=== PATIENT | female | born 1990 | race Caucasian/White ===

== ENCOUNTER 2017-05-27 13:36 | Emergency (ER) | payer OTHER ==
[~2017-05-27] VITALS: Ht 165.1 cm; Wt 70.3 kg
[2017-05-27] MEDS ORDERED: TOPROL XL25 MG PO (13:57)
[2017-05-27] MEDS ORDERED: CYCLOBENZAPRINE5 MG PO (13:57)
[2017-05-27] MEDS ORDERED: OXYCODONE HYDRO10 M1 PO (13:58)
[2017-05-27] MEDS ORDERED: MIRTAZAPINE15 M2 PO (13:58)
[2017-05-27] MEDS ORDERED: GLUCOTROL5 MG PO (13:59)
[2017-05-27] MEDS ORDERED: TRAZODONE100 MG PO (13:59)
[2017-05-27] MEDS ORDERED: NATURAL SENNA8.6 MG PO (14:00)
[2017-05-27] MEDS ORDERED: COLACE100 MG PO (14:00)
[2017-05-27] MEDS ORDERED: MORPHINE SULFAT15 M7 PO (14:01)
[2017-05-27] MEDS ORDERED: ATORVASTATIN CA40 M1 PO (14:02)
[2017-05-27] MEDS ORDERED: ELIQUIS5 MG PO (14:02)
[2017-05-27] MEDS ORDERED: NEU300 PO (14:02)
[2017-05-27] MEDS ORDERED: METFORMIN HCL1000 MG PO (14:03)
[2017-05-27 15:28] LABS: BASOPHIL % 0.3 % (0-2); RED CELL DISTRIBUTION WIDTH 13.4 % (11.5-14.5)
[2017-05-27 15:29] LABS: PLATELET COUNT 403 x10^3mcL (130-400)
[2017-05-27 15:31] LABS: CALCIUM 8.8 mg/dL (8.5-10.1); CARBON DIOXIDE 30.6 mmol/L (21-32); CHLORIDE SERUM 103 mmol/L (98-107); CREATININE SERUM 0.6 mg/dL (0.6-1.0); GFR1 > 60 mL/min; GLUCOSE SERUM 133 mg/dL (74-106); POTASSIUM SERUM 3.5 mmol/L (3.5-5.1); SODIUM SERUM 140 mmol/L (136-145)
[2017-05-27 15:37] LABS: ALBUMIN 3.2 g/dL (3.4-5.0); ALKALINE PHOSPHATASE 78 U/L (46-116); ALT/SGPT 19 U/L (14-59); AST/SGOT 10 U/L (15-37); BILIRUBIN TOTAL 0.3 mg/dL (0.20-1.00); CHOLESTEROL 136 mg/dL (<200); CHOLESTEROL/HDL RATIO 3.6; HDL CHOLESTEROL 38 mg/dL (40-60); LIPASE 107 IU/L (73-393); TOTAL PROTEIN, SERUM 7.5 g/dL (6.4-8.2); TRIGLYCERIDES 108 mg/dL (<150)
[2017-05-27 15:57] LABS: T3 TOTAL 1.07 ng/mL
[2017-05-27 16:02] LABS: FREE T4 1.13 ng/dL (0.76-1.46); FREE THYROXINE INDEX 3.4 ug/dL (1.4-4.5); T4(THYROXINE) 9.7 ug/dL (4.7-13.3)
[2017-05-27 18:43] VITALS: BP 114/85
== END 2017-05-27 18:43 | disposition home or self-care (01) ==
LOC: ED 13:36
PROVIDERS: Specialist
DX: F41.9 Anxiety disorder, unspecified (principal); E11.9 Type 2 diabetes mellitus without complications; Z79.84 Long term (current) use of oral hypoglycemic drugs
CPT/HCPCS: 36415; 83880; 84439; Q0092

== ENCOUNTER 2019-07-15 13:18 | Inpatient (IN) | payer OTHER ==
[~2019-07-15] VITALS: Ht 167.6 cm; Wt 75.9 kg
[~2019-07-15 13:18] MED LIST: ATORVASTATIN CA40 M1 PO; COLACE100 MG PO; CYCLOBENZAPRINE5 MG PO; ELIQUIS5 MG PO; GLUCOTROL5 MG PO; METFORMIN HCL1000 MG PO; MIRTAZAPINE15 M2 PO; MORPHINE SULFAT15 M7 PO; NATURAL SENNA8.6 MG PO; NEU300 PO; OXYCODONE HYDRO10 M1 PO; TOPROL XL25 MG PO; TRAZODONE100 MG PO
[2019-07-15 13:23] VITALS: Ht 167.6 cm; Wt 75.9 kg
--- NOTE | 2019-07-15 14:49 | NUR ---
PT SITTING UP ON EDGE OF BED, AAOX4 WITH C/O 10/10 PAIN TO LT EAR WITH SWELLING/REDNESS X 2 MONTHS S/P EAR PIERCING. PT ALSO WITH C/O MID LOWER BACK PAIN X 3 DAYS WITH NAUSEA AND 'GREEN' STOOL 'FOR A FEW DAYS'. PT DENIES ANY V/D/C, RESP ILLNESS, FEVER OR URINARY PROBLEMS AT THIS TIME. PT WAS SENT HERE FROM HER PCP S/P OFFICE VISIT. PCP RX STATING PT NEEDS TO BE EVALUATED FOR DKA DUE TO ELEVATED BLOOD SUGAR AND PROTEIN IN URINE. NO SIGNS OF DISTRESS AT THIS TIME. PT NOTED WITH SWELLING AND DISCOLORATION TO TOP OF LT EAR, NO DRAINAGE AT THIS TIME.
--- NOTE | 2019-07-15 16:16 | NUR ---
DR. DELANEY AT BEDSIDE FOR MSE.
[2019-07-15 16:47] LABS: microscopic required? NO
[2019-07-15 17:06] LABS: UA SPECIFIC GRAVITY <=1.005 (1.005-1.035); urine erythrocyte NEGATIVE (NEGATIVE)
--- NOTE | 2019-07-15 17:06 | NUR ---
PT. SITTING UP ON GURNEY ON CELL PHONE. BREATHING E/U. NO APPARENT DISTRESS NTOED. CALL LIGHT IN REACH. WILL CONTINUE TO MONITOR.
[2019-07-15 17:16] LABS: BASOPHIL % 0.3 % (0-2); PLATELET COUNT 353 x10^3mcL (130-400); RED CELL DISTRIBUTION WIDTH 12.3 % (11.5-14.5)
[2019-07-15 17:26] LABS: ALBUMIN 3.4 g/dL (3.4-5.0); ALKALINE PHOSPHATASE 128 U/L (46-116); ALT/SGPT 21 U/L (14-59); AST/SGOT 5 U/L (15-37); BILIRUBIN TOTAL 0.27 mg/dL (0.20-1.00); CALCIUM 8.8 mg/dL (8.5-10.1); CARBON DIOXIDE 29.8 mmol/L (21-32); CHLORIDE SERUM 97 mmol/L (98-107); CREATININE SERUM 0.9 mg/dL (0.6-1.0); GFR1 > 60 mL/min; POTASSIUM SERUM 3.8 mmol/L (3.5-5.1); SODIUM SERUM 135 mmol/L (136-145); TOTAL PROTEIN, SERUM 8.2 g/dL (6.4-8.2)
[2019-07-15 17:28] LABS: GLUCOSE SERUM 521 mg/dL (74-106)
--- NOTE | 2019-07-15 19:19 | NUR ---
RECEIVED REPORT FORM FAUSTO RICH RN, I WILL ASSUME FURTHER CARE OF THIS PATIENT.
--- NOTE | 2019-07-15 19:19 | NUR ---
REPORT GIVEN TO JUAN CADENA FOR FURTHER CARE OF PATIENT. ALL QUESTIONS AND CONCERNS ADDRESSED.
[2019-07-15] MEDS ORDERED: OXYCODONE HYDROC5 M2 PO (19:28)
[2019-07-15] MEDS ORDERED: MORPHINE SULFAT30 M2 PO (19:28)
--- NOTE | 2019-07-15 19:35 | NUR ---
PT REPRTS HEADACHE PAIN AND LEFT EAR PAIN, PT ASKED FOR PAIN MEDICATIONS, NOTIFIED ELAINA DUMONT. TO PLACE IN ORDERS FRO MEDS.
--- NOTE | 2019-07-15 19:38 | NUR ---
MEDICATED PT PER MD ORDERS, SEE EMAR, PT VERBALIZED UNDERSTANDING OF MEDICATION TEACHING. PT IN POSITION OF COMFORT LAYING IN BED, PT ON MONITOR. BED IN LOWEST POSITION, SIDERAIL X2 UP FOR SAFETY, CALL SOLIS WITHIN REACH. CARLOS CONT TO MONITOR.
--- NOTE | 2019-07-15 20:10 | NUR ---
XRAY AT THE BEDSIDE
[2019-07-15 20:35] LABS: HDL CHOLESTEROL 44 mg/dL (40-60)
[2019-07-15 20:37] LABS: AMPHETAMINE QUAL UR NONE DETECTED (See below)
[2019-07-15 20:38] LABS: CHOLESTEROL 307 mg/dL (<200); TRIGLYCERIDES 609 mg/dL (<150)
[2019-07-15 20:40] LABS: T3 TOTAL 0.73 ng/mL
[2019-07-15 20:47] LABS: FREE T4 0.79 ng/dL (0.76-1.46); FREE THYROXINE INDEX 2.1 ug/dL (1.4-4.5); T4(THYROXINE) 6.7 ug/dL (4.7-13.3)
--- NOTE | 2019-07-15 21:00 | NUR ---
PT REPORTS IMPROVED HEAD PAIN, STATES PAIN IS 5/10 AT THIS TIME. PT IN POSITION OF COMFORT LAYING IN BED TALKING ON HER CELL PHONE. PT IN NO DISTRESS, RESP E/U. BED IN LOWEST POSITION, SIDERAIL X2 UP FOR SAFETY, CALL SOLIS WITHIN REACH.
--- NOTE | 2019-07-15 21:40 | NUR ---
PT GIVEN PEANUT BUTTER AND JELLY SANDWICH, OK PER . AND PARTH. PT ATE 100%.
--- NOTE | 2019-07-15 22:00 | NUR ---
BG= 306, 12 UNITS OF HUMULIN-R GIVEN SQ PER MD ORDERS PER SS, CONFIRMED BY SECOND RBN ESTEVAN.
--- NOTE | 2019-07-15 22:12 | NUR ---
GAVE REPORT TO SATNAM CADENA, ON [facility] WHO WILL ASSUME FURTHER CARE OF THIS PATIENT.
[2019-07-15 22:49] VITALS: BP 128/86
--- NOTE | 2019-07-15 23:04 | NUR ---
ADMITTED A 28 YEARS OLD FEMALE AWAKE,ALERT AND ORIENTED CAME IN VIA GURNEY ACCOMPANIED BY ER STAFF WITH C/O REDNESS AND SWELLING LEFT EAR. MEDICATED IN ER FOR PAIN, TORADOL 30 MG IV GIVEN. KEPT IN COMFORT,ORIENTED TO ROOM AND DEVICES. WITH ADMISSION ORDERS AND TO CARRY OUT. IV TO LAC INTACT AND INFUSING WELL. WILL CONTINUE TO MONITOR.
--- NOTE | 2019-07-15 23:54 | NUR ---
PICTURE OF LEFT ESR ABSCESS TAKEN AND ABCESS SWAB TAKEN FOR CULTURE. WILL CONTINUE TO MONITOR.
[2019-07-16 05:09] VITALS: BP 120/87
--- NOTE | 2019-07-16 05:21 | NUR ---
SLEPT AT LONG INTERVALS C/O LEG PAIN X1 THE ENTIRE SHIFT AND MEDCIATED PRESCRIBED. ALL NEEDS ATTENDED.
--- NOTE | 2019-07-16 07:05 | NUR ---
RECEIVED PATIENT AWAKE/ALERT IN BED NO DISTRESS NOTED. REPORT NO PAIN AT THIS TIME. M/S. IV TO LAC INTACT AND INFUSING WELL, NO SWELLING NOTED. POC DISCUSS. CALL LIGHT WITHIN REACH.
[2019-07-16 07:25] LABS: BASOPHIL % 0.3 % (0-2); PLATELET COUNT 339 x10^3mcL (130-400); RED CELL DISTRIBUTION WIDTH 12.1 % (11.5-14.5)
[2019-07-16 07:55] LABS: CARBON DIOXIDE 28.1 mmol/L (21-32); CHLORIDE SERUM 106 mmol/L (98-107); CREATININE SERUM 0.5 mg/dL (0.6-1.0); GFR1 > 60 mL/min; GLUCOSE SERUM 201 mg/dL (74-106); MAGNESIUM 1.8 mg/dL (1.8-2.4); PHOSPHOROUS 3.2 mg/dL (2.5-4.9); POTASSIUM SERUM 3.1 mmol/L (3.5-5.1); SODIUM SERUM 142 mmol/L (136-145)
[2019-07-16 08:28] VITALS: BP 131/90
--- NOTE | 2019-07-16 10:33 | NUR ---
PATIENT RESTING IN BED NO COMPLAIN, NO PAIN REPORTED. ALL PO MEDS ADMINISITERED, PATIENT ON OXYCODONE PO SCHEDULE. NEEDS MET. CALL LIGHT WITHIN REACH.
[2019-07-16 13:08] VITALS: BP 142/87
--- NOTE | 2019-07-16 13:14 | NUR ---
PATIENT RESTING IN BED PAIN 7/10 LEG OXYCODONE AND NEURONTIN SCHEDULE GIVEN. NEEDS MET. CALL LIGHT WITHIN REACH.
--- NOTE | 2019-07-16 14:44 | NUR ---
PATIENT SIT UP IN BED INFORM PATIENT WILL GIVE POTASSIUM 40MEQ PO X1 FOR K 3.1 PATIENT TOLERATED WELL. VISITOR AT BEDSIDE, CALL LIGHT WITHIN REACH.
--- NOTE | 2019-07-16 16:53 | NUR ---
PATIENT SAT UP IN BED W/ HER AUNT AT BEDSIDE, GAVE 9UNITS REGULAR INSULIN SQ FOR BS 299, NEURONTIN PO ADMINISTERED, PATIENT TOLERATED. CONT TO MONITOR.
[2019-07-16 17:31] VITALS: BP 125/88
--- NOTE | 2019-07-16 18:21 | NUR ---
PATIENT RESTING IN BED ON THE PHONE AT THIS TIME, NO NEEDS OF ANYTHING. CONT TO MONITOR.
--- NOTE | 2019-07-16 19:35 | NUR ---
RECEIVED PT FROM DAY SHIFT RN. PT AAOX4 DENIES REDDING/DIZZINESS. BREATHING EVEN AND UNLABORED, ON RA WITH NO SOB NOTED. IV PATENT. PT AMB WITH BRP. PT DENEIS ANY CHEST PAIN/PRESSURE. NO ACUTE DISTRESS NOTED. CALL BUTTON WITHIN REACH. SAFETY PRECAUTIONS IN PLACE. WILL CONTINUE TO MONITOR.
[2019-07-16 20:37] VITALS: BP 117/85
--- NOTE | 2019-07-17 00:55 | NUR ---
ROUNDS MADE. PT RESTING. BREATHING EVEN AND UNLABORED. NO SIGNS OF DISTRESS NOTED. CALL BUTTON WITHIN REACH. SAFETY PRECAUTIONS IN PLACE. WILL CONTINUE TO MONITOR.
[2019-07-17 05:24] VITALS: BP 108/75
[2019-07-17 05:25] VITALS: BP 148/80
--- NOTE | 2019-07-17 06:15 | NUR ---
PT SLEPT MOST OF THE NIGHT WITH NO SIGNS OF DISTRESS. PT DENIES ANY PAIN. IV PATENT. PT AMBULATORY WITH BRP. PT MEDICATED PER EMAR. NO SIGNS OF ACUTE DISTRESS. CALL BUTTON WITHIN REACH. SAFETY PRECAUTIONS IN PLACE. WILL CONTINUE TO MONITOR AND ENDORSE CARE TO DAY SHIFT RN.
[2019-07-17 06:50] LABS: BASOPHIL % 0.4 % (0-2); PLATELET COUNT 288 x10^3mcL (130-400); RED CELL DISTRIBUTION WIDTH 11.8 % (11.5-14.5)
--- NOTE | 2019-07-17 07:00 | NUR ---
RECEIVED PATIENT AWAKE/ALERT IN BED, DENIES PAIN AT THIS TIME. NO DISTRESS NOTED. IV TO LAC INTACT AND SL, WRAPPED W/ KERLIX CDI. CALL LIGHT WITHIN REACH.
[2019-07-17 07:13] LABS: CALCIUM 8.5 mg/dL (8.5-10.1); CARBON DIOXIDE 26.1 mmol/L (21-32); CHLORIDE SERUM 108 mmol/L (98-107); CREATININE SERUM 0.6 mg/dL (0.6-1.0); GFR1 > 60 mL/min; GLUCOSE SERUM 217 mg/dL (74-106); POTASSIUM SERUM 3.7 mmol/L (3.5-5.1); SODIUM SERUM 142 mmol/L (136-145)
--- NOTE | 2019-07-17 07:38 | NUR ---
PT RESTING, BREATHING EVEN AND UNLABORED ON RA WITH NO SOB NOTED. NO SIGNS OF DISTRESS NOTED. ENDORSED CARE TO DAY SHIFT RN, ALL QUESTIONS ADDRESSED.
[2019-07-17 08:29] VITALS: BP 111/79
[2019-07-17] MEDS ORDERED: LEVOFLOXACIN500 M1 PO (08:30)
--- NOTE | 2019-07-17 09:21 | NUR ---
PATIENT RESTING IN BED NO COMPLAIN. PER PATIENT RESIDENT STANTON SEEN PATIENT AND PLANNING TO DISCHARGE HOEM. ALL PO MEDS AND OXYCODONE PO ADMINISTERED, PATIENT TOLERATED. NEEDS MET. CONT TO MONITOR.
--- NOTE | 2019-07-17 11:24 | NUR ---
PATIENT AWAKE/ALERT IN BED, MOTHER AT BEDSIDE, DM TEACHING PERFORM, HAVING PATIENT DEMONSTRATE BLOOD SUGAR CHECK STEPS BY STEPS PATIENT VERBALIZE "I KNOW HOW TO DO THAT", HAVING PATIENT DRAW ACCURATE DOSE ON THE SYRINGE AND VERIFIED BY ANOTHER RN AND MYSELF, PATIENT DEMONSTRATE GIVEING INSULIN TO ABDOMEN, PATIENT HASITATE A LITTLE BUT WAS ABLE TO GIVE HERSELF SHOT. PATIENT WILL LIKELY NONCOMPLIANT AT HOME "STATE THAT I'M NOT GOING DO THAT", EVEN WITH MOTHER INVOLVED.
--- NOTE | 2019-07-17 11:55 | NUR ---
SPOKE TO CARRIE RICHARD TO ARRANGE NURSE TO REINFORCED INSULIN SELF INJECT PER PATIENT AND MOTHER REQUEST. PATIENT IS AGREE TO INJECT INSULIN AT HOME.
[2019-07-17 12:39] VITALS: BP 111/79
--- NOTE | 2019-07-17 13:04 | NUR ---
PATIENT SAT UP EATING NO COMPLAIN, MOTHER AT BEDSIDE. DISCHARGE INSTRUCTION AND MEDICATION EXPLAINED TO PATIENT AND MOTHER. INSTRUCT TO TAKE MEDS DIRECTED. F/U APPT SCHEDULE. PATIENT VERBALIZE UNDERSTAND. IV REMOVED TO LAC W/ CATH INTACT, NO SWELLING NOTED. GAUZES APPLIED TO SITE. FISH SMOKER WILL ASSIST PATIENT OUT. ALL BELONGINGS WITH PATIENT.
== END 2019-07-17 13:10 | disposition home or self-care (01) | DRG 115 ==
LOC: ED 13:18 → MU 19:24
PROVIDERS: Emergency Medicine; ADMIT Family Medicine
DX: H60.12 Cellulitis of left external ear (principal); E87.8 Other disorders of electrolyte and fluid balance, not elsewhere classified; E11.65 Type 2 diabetes mellitus with hyperglycemia; D75.1 Secondary polycythemia; E87.1 Hypo-osmolality and hyponatremia; G89.21 Chronic pain due to trauma; M25.552 Pain in left hip; M54.9 Dorsalgia, unspecified; E78.5 Hyperlipidemia, unspecified; F32.9 Major depressive disorder, single episode, unspecified; Z68.28 Body mass index [BMI] 28.0-28.9, adult; Z79.84 Long term (current) use of oral hypoglycemic drugs; Z91.14 Patient's other noncompliance with medication regimen; Z87.828 Personal history of other (healed) physical injury and trauma; H66.42 Suppurative otitis media, unspecified, left ear
CPT/HCPCS: 82962; 83880; 84439; G0378; J0696; J1815; J1885; J1956; J7030; Q0092